=== PATIENT | male | born 1985 | race Caucasian/White ===

== ENCOUNTER 2020-11-10 07:37 | Emergency (ER) | payer BC ==
[~2020-11-10] VITALS: Ht 170.2 cm; Wt 72.6 kg
--- NOTE | 2020-11-10 07:40 | NUR ---
Placed in room 7 . Placed on rn cardiac, blood pressure machine and pulse oximeter. To gown for exam. Side rails up. Report given to URSULA Katz.
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
[2020-11-10 07:46] VITALS: BP_SYST 139
--- NOTE | 2020-11-10 07:53 | NUR ---
ER at bedside examining patient.
[2020-11-10] MEDS ORDERED: KETOROLAC TROMETHAMINE 60 MG/2 ML VIAL IM ONE (08:00)
[2020-11-10] MEDS ORDERED: IBUP-1971 PO (08:10)
[2020-11-10] MEDS ORDERED: HYDR-3917 PO (08:10)
--- NOTE | 2020-11-10 08:30 | NUR ---
Patient given written and verbal discharge instructions and verbalizes understanding. ER MD discussed with patient the results and treatment provided. Patient in stable condition. ID arm band removed. Rx of Motrin and [place] given. Patient educated on pain management and to follow up with PMD. Pain Scale 0. Opportunity for questions provided and answered. Medication side effect fact sheet provided.
[2020-11-10 08:33] VITALS: BP_SYST 139
== END 2020-11-10 08:30 | disposition home or self-care (01) ==
LOC: SED 07:37
DX: S00.83XA Contusion of other part of head, initial encounter (principal); Z88.1 Allergy status to other antibiotic agents; Y04.0XXA Assault by unarmed brawl or fight, initial encounter; Y93.89 Activity, other specified; Y92.89 Other specified places as the place of occurrence of the external cause; Y99.8 Other external cause status
CPT/HCPCS: 96372; 99283; J1885